=== PATIENT | female | born 1985 | race American Indian/Alaskan Native ===

== ENCOUNTER 2020-12-27 14:52 | Emergency (ER) | payer OTHER ==
[2020-12-27] MEDS ORDERED: MORPHINE 4 MG/1 ML INJ IV ONE (16:41)
[2020-12-27] MEDS ORDERED: SODIUM CHLORIDE 0.9% 1000 ML 1,000 ML IV ONE (16:41)
[2020-12-27] MEDS ORDERED: ONDANSETRON 4 MG/2 ML INJ IV ONE ×2 (16:42→17:36)
--- NOTE | 2020-12-27 16:51 | Event Note ---
ED Screening Note Date of service: 12/27/20 Time: 16:43 ED Screening Note: 35-year-old -[place] female presents to the emergency room for right lower quadrant abdominal pain x1 week. Temperature low-grade mild tachycardic tenderness to the right lower quadrant This initial assessment/diagnostic orders/clinical plan/treatment(s) is/are subject to change based on patients health status, clinical progression and re- assessment by fellow clinical providers in the ED. Further treatment and workup at subsequent clinical providers discretion. Patient/guardian urged not to elope from the ED as their condition may be serious if not clinically assessed and managed. Initial orders include: CBC CMP urinalysis INT normal saline morphine Zofran and CT abdomen will contrast.
[2020-12-27 17:18] LABS: Basophils % (Auto) 0.6 % (0.0-1.8); Eosinophils # (Auto) 0.1 K/mm3 (0.0-0.4); Eosinophils % (Auto) 1.2 % (0.0-4.3); Hematocrit 34.9 % (30.3-42.9); Hemoglobin 11.9 gm/dl (10.1-14.3); Lymphocytes # (Auto) 2.1 K/mm3 (1.2-5.4); Lymphocytes % (Auto) 25.6 % (13.4-35.0); Mean Corpuscular HGB Conc 34 % (30-34); Mean Corpuscular Volume 88 fl (79-97); Monocytes # (Auto) 0.5 K/mm3 (0.0-0.8); Monocytes % (Auto) 6.3 % (0.0-7.3); Platelet Count 233 K/mm3 (140-440); Red Blood Count 3.97 M/mm3 (3.65-5.03); Red Cell Distribution Width 15.3 % (13.2-15.2)
[2020-12-27] MEDS ORDERED: fentaNYL 100 MCG/2 ML INJ IV ONE ×2 (17:36→21:29)
--- NOTE | 2020-12-27 17:41 | Emergency Department Report ---
HPI - General Chief Complaint: Abdominal Pain Time Seen by Provider: 12/27/20 17:23 - HPI HPI: Room 30 The patient is a 35-year-old female present with a chief complaint of abdominal pain. Patient states last week she had sharp pain in her right flank that lasted approximate 1.5 hours and then subsided. Patient states she was pain- free until this morning when the pain returned again sharp and burning in the right flank. Patient admits to nausea vomiting as well as dysuria for 1 day. Patient denies hematuria. Patient states the pain does increase with movement. Patient denies history of fever. Patient gives her pain a score of 10/10 ED Past Medical Hx - Past Medical History Previous Medical History?: No - Surgical History Past Surgical History?: No - Family History Family history: no significant - Social History Smoking Status: Current Every Day Smoker (1/3 pack/day) Substance Use Type: None (Denies illicit drug), Alcohol (Occasional) - Medications Home Medications: Home Medications Medication Instructions Recorded Confirmed Last Taken Type HYDROcodone/APAP 5-325 [Newton 1 - 2 each PO Q6HR PRN #10 tablet 12/27/20 Unknown Rx 5/325] Ibuprofen [Motrin 800 MG tab] 800 mg PO Q8HR PRN #20 tablet 12/27/20 Unknown Rx Promethazine [Phenergan] 25 mg PO Q6HR PRN #20 tab 12/27/20 Unknown Rx Promethazine [Phenergan] 25 mg NE Q6HR PRN #5 supp.rect 12/27/20 Unknown Rx levoFLOXacin [Levaquin TAB] 500 mg PO QDAY #10 tablet 12/27/20 Unknown Rx ED Review of Systems ROS: Stated complaint: ABD PAIN Other details as noted in HPI Constitutional: denies: fever Eyes: denies: eye pain ENT: denies: throat pain Respiratory: no symptoms reported Cardiovascular: denies: chest pain Endocrine: no symptoms reported Gastrointestinal: abdominal pain, nausea, vomiting Genitourinary: dysuria. denies: hematuria Musculoskeletal: back pain Neurological: denies: headache Physical Exam - Physical Exam Vital Signs: Vital Signs 12/27/20 12/27/20 15:18 16:22 Temperature 99.1 F 99 F Pulse Rate 100 H 96 H Respiratory 18 16 Rate Blood Pressure 175/108 Blood Pressure 152/98 [Left] O2 Sat by Pulse 99 100 Oximetry Physical Exam: GENERAL: The patient is well-developed well-nourished female lying in chair not appearing to be in acute distress. [] HEENT: Normocephalic. Atraumatic. Extraocular motions are intact. Patient has moist mucous membranes. NECK: Supple. Trachea midline CHEST/LUNGS: Clear to auscultation. There is no respiratory distress noted. HEART/CARDIOVASCULAR: Regular. There is no tachycardia. There is no gallop rub or murmur. ABDOMEN: Abdomen is soft, with tenderness to palpation in the right upper quadrant and right lower quadrant. Remainder of the abdomen is benign. Patient has normal bowel sounds. There is no abdominal distention. SKIN: There is no rash. There is no edema. There is no diaphoresis. NEURO: The patient is awake, alert, and oriented. The patient is cooperative. The patient has no focal neurologic deficits. The patient has normal speech. GCS 15 MUSCULOSKELETAL: There is right CVA tenderness. There is no evidence of acute injury. ED Course Vital Signs 12/27/20 12/27/20 15:18 16:22 Temperature 99.1 F 99 F Pulse Rate 100 H 96 H Respiratory 18 16 Rate Blood Pressure 175/108 Blood Pressure 152/98 [Left] O2 Sat by Pulse 99 100 Oximetry ED Medical Decision Making - Lab Data Result diagrams: 12/27/20 17:08 12/27/20 17:08 Laboratory Tests 12/27/20 12/27/20 12/27/20 17:08 17:08 17:08 WBC 8.2 RBC 3.97 Hgb 11.9 Hct 34.9 MCV 88 MCH 30 MCHC 34 RDW 15.3 H Plt Count 233 Lymph % (Auto) 25.6 [place] % (Auto) 6.3 Eos % (Auto) 1.2 Baso % (Auto) 0.6 Lymph # (Auto) 2.1 Trimble # (Auto) 0.5 Eos # (Auto) 0.1 Baso # (Auto) 0.0 Seg Neutrophils % 66.3 Seg Neutrophils # 5.5 Sodium 141 Potassium 3.5 L Chloride 103.0 Carbon Dioxide 21 L Anion Gap 21 BUN 10 Creatinine 0.5 L Estimated GFR > 60 BUN/Creatinine Ratio 20 Glucose 66 Calcium 8.4 Total Bilirubin 0.40 AST 17 ALT 11 Alkaline Phosphatase 59 Total Protein 7.5 Albumin 4.3 Albumin/Globulin Ratio 1.3 HCG, Quant < 2 Urine Color Urine Turbidity Urine pH Ur Specific Bowen Urine Protein Urine Glucose (UA) Urine Ketones Urine Blood Urine Nitrite Urine Bilirubin Urine Urobilinogen Ur Leukocyte Esterase Urine WBC (Auto) Urine RBC (Auto) U Epithel Cells (Auto) Urine Bacteria (Auto) Urine Mucus 12/27/20 Unknown WBC RBC Hgb Hct MCV MCH MCHC RDW Plt Count Lymph % (Auto) [place]imble % (Auto) Eos % (Auto) Baso % (Auto) Lymph # (Auto) Trimble # (Auto) Eos # (Auto) Baso # (Auto) Seg Neutrophils % Seg Neutrophils # Sodium Potassium Chloride Carbon Dioxide Anion Gap BUN Creatinine Estimated GFR BUN/Creatinine Ratio Glucose Calcium Total Bilirubin AST ALT Alkaline Phosphatase Total Protein Albumin Albumin/Globulin Ratio HCG, Quant Urine Color Yellow Urine Turbidity Slightly-cloudy Urine pH 5.0 Ur Specific Bowen 1.028 Urine Protein 30 mg/dl Urine Glucose (UA) Neg Urine Ketones 20 Urine Blood Neg Urine Nitrite Neg Urine Bilirubin Neg Urine Urobilinogen < 2.0 Ur Leukocyte Esterase Tr Urine WBC (Auto) 39.0 H Urine RBC (Auto) 3.0 U Epithel Cells (Auto) 25.0 H Urine Bacteria (Auto) 1+ Urine Mucus 3+ - Radiology Data Radiology results: report reviewed (CT abdomen pelvis), image reviewed (CT abdomen pelvis) [place] [address] Cat Scan Report Signed Patient: CONCHITA NICOLE MR# : [id number] : 1985 Acct:[id number] Age/Sex: 35 / F ADM Date: 12/27/20 Loc: ED Attending Dr: Ordering Physician: SERENA LOPEZ MD Date of Service: 12/27/20 Procedure(s): CT abdomen pelvis wo/w con Accession Number(s): [id number] cc: SERENA LOPEZ MD CT ABDOMEN AND PELVIS WITHOUT AND WITH CONTRAST INDICATION / CLINICAL INFORMATION: Right flank pain, right-sided abdominal pain. TECHNIQUE: Axial CT images were obtained through the abdomen and pelvis before and after 100 cc of Omnipaque [address] scans at this location are performed using CT dose reduction for ALARA by means of automated exposure control. COMPARISON: None available. FINDINGS: LOWER CHEST: No significant abnormality. AORTA / ARTERIES: No significant abnormality. IVC / VEINS: No significant abnormality. LYMPH NODES: No significant adenopathy. COLON: No significant abnormality. APPENDIX: No significant abnormality. STOMACH / SMALL BOWEL: No significant abnormality. PERITONEUM: No free fluid. No free air. No fluid collection. LIVER: No significant abnormality. GALLBLADDER: No significant abnormality. BILE DUCTS: No significant abnormality. PANCREAS: No significant abnormality. SPLEEN: No significant abnormality. ADRENALS: No significant abnormality. RIGHT KIDNEY / URETER: No significant abnormality. LEFT KIDNEY / URETER: No significant abnormality. URINARY BLADDER: No significant abnormality. REPRODUCTIVE ORGANS: No significant abnormality. SKELETAL SYSTEM: No significant abnormality. ADDITIONAL FINDINGS: None. IMPRESSION: 1. No acute intra-abdominal intrapelvic pathology, specifically no nephrolithiasis or hydronephrosis or appendicitis. Signer Name: Gabino Reeves DO Signed: 12/27/2020 8:54 PM Workstation Name: [id number] Transcribed By: MICHELE Dictated By: GABINO REEVES DO Electronically Authenticated By: GABINO REEVES DO Signed Date/Time: 12/27/202053 DD/ 48 TD/TT: Print - Differential Diagnosis Renal colic, pyelonephritis, appendicitis Critical care attestation.: If time is entered above; I have spent that time in minutes in the direct care of this critically ill patient, excluding procedure time. ED Disposition Clinical Impression: Acute abdominal pain, Pyelonephritis Disposition: 01 HOME / SELF CARE / HOMELESS Is pt being admited?: No Does the pt Need Aspirin: No Condition: Stable Instructions: Abdominal Pain (ED), Pyelonephritis, Adult, [id number] Additional Instructions: Return to the emergency department should you develop worsening symptoms, inability to tolerate food or liquids, high fever or any other concerns Prescriptions: levoFLOXacin [Levaquin TAB] 500 mg PO QDAY #10 tablet Ibuprofen [Motrin 800 MG tab] 800 mg PO Q8HR PRN #20 tablet PRN Reason: Pain, Moderate (4-6) HYDROcodone/APAP 5-325 [Newton 5/325] 1 - 2 each PO Q6HR PRN #10 tablet PRN Reason: Pain Promethazine [Phenergan] 25 mg PO Q6HR PRN #20 tab PRN Reason: Nausea Promethazine [Phenergan] 25 mg NE Q6HR PRN #5 supp.rect PRN Reason: Vomiting Referrals: JOSEFINA BROWN MD [Staff Physician] - 3-5 Days Time of Disposition: 21:25
[2020-12-27 17:42] LABS: Alanine Aminotransferase 11 units/L (7-56); Albumin 4.3 g/dL (3.9-5); Blood Urea Nitrogen 10 mg/dL (7-17); Calcium 8.4 mg/dL (8.4-10.2); Hemolysis Index 3
[2020-12-27 17:43] LABS: BUN/Creatinine Ratio 20
[2020-12-27 17:51] LABS: Bacteria,Urine 1+ /HPF (Negative); Bilirubin,Urine NEG (Negative); Blood,Urine NEG (Negative); Color,Urine Yellow (Yellow); Mucus,Urine 3+ /HPF; Urobilinogen,Urine < 2.0 mg/dL (<2.0)
--- NOTE | 2020-12-27 20:59 | Cat Scan Report ---
CT ABDOMEN AND PELVIS WITHOUT AND WITH CONTRAST INDICATION / CLINICAL INFORMATION: Right flank pain, right-sided abdominal pain. TECHNIQUE: Axial CT images were obtained through the abdomen and pelvis before and after 100 cc of Om nipaque [address] scans at this location are performed using CT dose reduction for ALA RA by means of automated exposure control. COMPARISON: None available. FINDINGS: LOWER CHEST: No significant abnormality. AORTA / ARTERIES: No significant abnormality. IVC / VEINS: No significant abnormality. LYMPH NODES: No significant adenopathy. COLON: No significant abnormality. APPENDIX: No significant abnormality. STOMACH / SMALL BOWEL: No significant abnormality. PERITONEUM: No free fluid. No free air. No fluid collection. LIVER: No significant abnormality. GALLBLADDER: No significant abnormality. BILE DUCTS: No significant abnormality. PANCREAS: No significant abnormality. SPLEEN: No significant abnormality. ADRENALS: No significant abnormality. RIGHT KIDNEY / URETER: No significant abnormality. LEFT KIDNEY / URETER: No significant abnormality. URINARY BLADDER: No significant abnormality. REPRODUCTIVE ORGANS: No significant abnormality. SKELETAL SYSTEM: No significant abnormality. ADDITIONAL FINDINGS: None. IMPRESSION: 1. No acute intra-abdominal intrapelvic pathology, specifically no nephrolithiasis or hydronephrosis or appendicitis. Signer Name: Gabino Alvarez DO Signed: 12/27/2020 8:54 PM Workstation Name: [id number]
[2020-12-27] MEDS ORDERED: METOCLOPRAMIDE 10 MG/2 ML INJ IV ONE (21:29)
[2020-12-27] MEDS ORDERED: levoFLOXacin 500 MG TAB PO ONE (21:29)
[2020-12-27 23:17] VITALS: BP 148/73
== END 2020-12-27 23:15 | disposition home or self-care (01) ==
LOC: ED 14:52
DX: N12 Tubulo-interstitial nephritis, not specified as acute or chronic (principal); R10.9 Unspecified abdominal pain; F17.200 Nicotine dependence, unspecified, uncomplicated
CPT/HCPCS: 36415; 74178; 80053; 81001; 84702; 85025; 87086; 96361; 96374; 96375; 96376; 99284; J2270; J2405; J2765; J3010; J7030; Q9967